=== PATIENT | male | born 1980 | race African-American/Black ===

== ENCOUNTER 2020-07-21 17:51 | Emergency (ER) | payer MEDICAID ==
[~2020-07-21] VITALS: Ht 167.6 cm; Wt 70.0 kg
[2020-07-21 19:06] LABS: BASOPHILS % 0.4 % (0.0-2.0); EOSINOPHILS % 0.6 % (0.0-5.0); HEMATOCRIT. 42.1 % (42.0-52.0); HEMOGLOBIN. 14.3 g/dL (14.0-18.0); LYMPHOCYTES % 34.3 % (20.0-50.0); MEAN CORPUSCULAR HEMOGLOBIN 29.7 pg (28.0-32.0); MEAN CORPUSCULAR VOLUME 87.1 fL (80.0-94.0); MEAN PLATELET VOLUME 8.4 fl (7.4-10.4); NEUTROPHILS % 58.7 % (40.0-76.0); PLATELET 261 x1000/uL (130-400); RED BLOOD CELL COUNT 4.83 mill/uL (4.7-6.1); RED CELL DISTRIBUTION WIDTH 12.9 % (11.6-14.6)
[2020-07-21 19:10] LABS: CHLORIDE 105 mEq/L (98-107)
[2020-07-21 19:13] LABS: CLARITY URINE CLEAR (CLEAR); COLOR URINE YELLOW (YELLOW); KETONES URINE NEGATIVE (NEGATIVE); LEUKOCYTE ESTERASE URINE NEGATIVE (NEGATIVE); NITRITE URINE NEGATIVE (NEGATIVE); OCCULT BLOOD URINE NEGATIVE (NEGATIVE); PROTEIN URINE NEGATIVE (NEGATIVE); SPECIFIC GRAVITY URINE 1.013 (1.005-1.030); UROBILINOGEN URINE 0.2 E.U./dL (0.2-1.0)
[2020-07-21 19:35] LABS: METHADONE URINE SCREEN NEGATIVE (NEGATIVE); OPIATES URINE SCREEN NEGATIVE (NEGATIVE); PHENCYCLIDINE URINE SCREEN NEGATIVE (NEGATIVE)
[2020-07-21 19:36] LABS: *AMPHETAMINES SCREEN URINE NEGATIVE (NEGATIVE); *BARBITURATES SCREEN URINE NEGATIVE (NEGATIVE); *BENZODIAZEPINES SCREEN URINE NEGATIVE (NEGATIVE); *COCAINE SCREEN URINE NEGATIVE (NEGATIVE); CANNABINOID URINE SCREEN NEGATIVE (NEGATIVE)
[2020-07-21] MEDS ORDERED: DICY20TA11 MT (20:18)
[2020-07-21 20:24] VITALS: BP 115/81
== END 2020-07-21 20:25 | disposition home or self-care (01) ==
LOC: ER 17:51
DX: R10.32 Left lower quadrant pain (principal)
CPT/HCPCS: 36415; 80053; 80305; 81003; 84443; 85025; 93005; 99284

== ENCOUNTER 2020-12-15 21:55 | Emergency (ER) | payer MEDICAID ==
[~2020-12-15] VITALS: Ht 175.3 cm; Wt 66.0 kg
[~2020-12-15 21:55] MED LIST: DICY20TA11 MT
[2020-12-15] MEDS ORDERED: IBUPROFEN 600MG TABLET PO ONE (23:15)
[2020-12-16] MEDS ORDERED: IBUP-2028 MT (00:25)
[2020-12-16 00:35] VITALS: BP 133/78
== END 2020-12-16 00:40 | disposition home or self-care (01) ==
LOC: ER 21:55
DX: R07.89 Other chest pain (principal); E78.00 Pure hypercholesterolemia, unspecified; E55.9 Vitamin D deficiency, unspecified
CPT/HCPCS: 71045; 93005; 99283

== ENCOUNTER 2020-12-21 21:36 | Emergency (ER) | payer MEDICAID ==
[~2020-12-21] VITALS: Ht 175.3 cm; Wt 69.0 kg
[~2020-12-21 21:36] MED LIST changes: +IBUP-2028 MT
[2020-12-21 23:12] LABS: BASOPHILS % 0.4 % (0.0-2.0); HEMOGLOBIN. 14.1 g/dL (14.0-18.0); LYMPHOCYTES % 39.5 % (20.0-50.0); MEAN CORPUSCULAR HEMOGLOBIN 29.4 pg (28.0-32.0); MEAN CORPUSCULAR VOLUME 85.8 fL (80.0-94.0); MEAN PLATELET VOLUME 8.2 fl (7.4-10.4); MONOCYTES % 7.1 % (2.0-8.0); PLATELET 276 x1000/uL (130-400); RED BLOOD CELL COUNT 4.78 mill/uL (4.7-6.1); RED CELL DISTRIBUTION WIDTH 12.6 % (11.6-14.6)
[2020-12-21 23:15] LABS: CHLORIDE 107 mEq/L (98-107)
[2020-12-22 00:59] VITALS: BP 129/81
== END 2020-12-22 01:02 | disposition home or self-care (01) ==
LOC: ER 21:36
DX: U07.1 COVID-19 (principal); R00.2 Palpitations; E78.00 Pure hypercholesterolemia, unspecified
CPT/HCPCS: 36415; 80048; 85025; 99283

== ENCOUNTER 2023-02-28 20:05 | Emergency (ER) | payer MEDICAID ==
[~2023-02-28] VITALS: Ht 175.3 cm; Wt 70.0 kg
[~2023-02-28 20:05] MED LIST changes: -DICY20TA11 MT; +DICY20TA2 MT
[2023-02-28 20:20] VITALS: BP 122/74; TEMP 98.2; O2SAT 100
[2023-02-28 20:25] VITALS: PULSE 77; RESP 18
[2023-02-28] MEDS ORDERED: TETRACAINE 0.5% OPHTH DROPS 4ML EACHEYE ONE (23:30)
[2023-02-28] MEDS ORDERED: FLUORESCEIN SODIUM 1MG/STRIP RIGHTEYE ONE (23:30)
== END 2023-03-01 03:37 | disposition home or self-care (01) ==
LOC: ER 20:05
DX: S00.83XA Contusion of other part of head, initial encounter (principal); J45.909 Unspecified asthma, uncomplicated; W21.02XA Struck by soccer ball, initial encounter; Y93.89 Activity, other specified; Y92.89 Other specified places as the place of occurrence of the external cause; Y99.8 Other external cause status
CPT/HCPCS: 70480; 99284